=== PATIENT | female | born 2000 | race Caucasian/White ===

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

== ENCOUNTER → 2019-08-12 | Outpatient (CLI) | payer OTHER ==
[~2019-08-12] MED LIST changes: +ALBU4CRA; +CITA20 PO; +DOCU100 PO; +IBUP800 PO; +Verotin-Gr Cap1 EACH PO
[2019-08-12 17:49] LABS: BASOPHILS ABSOLUTE AUTO 0.03 K/mm3 (0.00-0.23); BASOPHILS PERCENT AUTO 1 % (0-2); EOSINOPHILS ABSOLUTE AUTO 0.15 K/mm3 (0.00-0.68); EOSINOPHILS PERCENT AUTO 2 % (0-6); Hematocrit 41.1 % (33.0-51.0); Hemoglobin 14.2 g/dL (11.5-16.0); IMMATURE GRAN ABSOLUTE AUTO 0.02 K/mm3 (0.00-0.10); IMMATURE GRAN PERCENT AUTO 0 % (0-1); LYMPHOCYTES ABSOLUTE AUTO 1.91 K/mm3 (0.84-5.20); LYMPHOCYTES PERCENT AUTO 31 % (21-46); MONOCYTES ABSOLUTE AUTO 0.52 K/mm3 (0.16-1.47); MONOCYTES PERCENT AUTO 8 % (4-13); Mean Corpuscular HGB 32.1 pg (26.0-34.0); Mean Corpuscular HGB Conc 34.5 g/dL (31.5-36.5); Mean Corpuscular Volume 93 fL (80-100); Mean Platelet Volume 10.1 fL (9.1-12.4); NEUTROPHILS ABSOLUTE AUTO 3.53 K/mm3 (1.96-9.15); NEUTROPHILS PERCENT AUTO 57 % (41-73); Platelet Count 298 K/mm3 (150-400); RDW Coefficient Variation 11.7 % (11.7-14.2); RDW Standard Deviation 39.9 fL (35.1-46.3); Red Blood Cell Count 4.43 M/mm3 (3.80-5.20); White Blood Cell Count 6.16 K/mm3 (4.00-11.30)
== END | disposition home or self-care (01) ==
LOC: LAB EV 17:44 → LAB SHORT 17:44
PROVIDERS: Family Medicine
DX: R42 Dizziness and giddiness (principal)
CPT/HCPCS: 85025

== ENCOUNTER 2019-12-05 03:12 | Emergency (ER) | payer OTHER ==
[~2019-12-05] VITALS: Ht 162.6 cm; Wt 63.5 kg
== END 2019-12-05 03:51 | disposition home or self-care (01) ==
LOC: ER 03:12
DX: T19.2XXA Foreign body in vulva and vagina, initial encounter (principal); Z87.891 Personal history of nicotine dependence
CPT/HCPCS: 99283

== ENCOUNTER → 2020-03-21 | Outpatient (CLI) | payer OTHER ==
[2020-03-21 18:30] LABS: BASOPHILS ABSOLUTE AUTO 0.04 K/mm3 (0.00-0.23); BASOPHILS PERCENT AUTO 1 % (0-2); EOSINOPHILS ABSOLUTE AUTO 0.28 K/mm3 (0.00-0.68); EOSINOPHILS PERCENT AUTO 3 % (0-6); Hematocrit 41.6 % (33.0-51.0); Hemoglobin 14.4 g/dL (11.5-16.0); IMMATURE GRAN ABSOLUTE AUTO 0.02 K/mm3 (0.00-0.10); IMMATURE GRAN PERCENT AUTO 0 % (0-1); LYMPHOCYTES ABSOLUTE AUTO 2.17 K/mm3 (0.84-5.20); LYMPHOCYTES PERCENT AUTO 27 % (21-46); MONOCYTES ABSOLUTE AUTO 0.47 K/mm3 (0.16-1.47); MONOCYTES PERCENT AUTO 6 % (4-13); Mean Corpuscular HGB 31.5 pg (26.0-34.0); Mean Corpuscular HGB Conc 34.6 g/dL (31.5-36.5); Mean Corpuscular Volume 91 fL (80-100); Mean Platelet Volume 9.8 fL (9.1-12.4); NEUTROPHILS ABSOLUTE AUTO 5.22 K/mm3 (1.96-9.15); NEUTROPHILS PERCENT AUTO 64 % (41-73); Platelet Count 285 K/mm3 (150-400); RDW Coefficient Variation 11.4 % (11.7-14.2); Red Blood Cell Count 4.57 M/mm3 (3.80-5.20)
== END | disposition home or self-care (01) ==
LOC: LAB SHORT 18:26 → LAB EV 18:26
PROVIDERS: Physician Assistant
DX: D64.9 Anemia, unspecified (principal)
CPT/HCPCS: 85025

== ENCOUNTER 2020-06-17 20:55 | Emergency (ER) | payer OTHER ==
[~2020-06-17] VITALS: Ht 162.6 cm; Wt 68.0 kg
[2020-06-17] MEDS ORDERED: TRAZ50 PO (21:03)
== END 2020-06-17 21:54 | disposition home or self-care (01) ==
LOC: ER 20:55
DX: S20.359A Superficial foreign body of unspecified front wall of thorax, initial encounter (principal); F17.290 Nicotine dependence, other tobacco product, uncomplicated; Z79.899 Other long term (current) drug therapy; W45.8XXA Other foreign body or object entering through skin, initial encounter
CPT/HCPCS: 10120; 99282-25

== ENCOUNTER → 2022-02-28 | Outpatient (CLI) | payer OTHER ==
[~2022-02-28] MED LIST changes: +TRAZ50 PO
== END | disposition home or self-care (01) ==
LOC: LAB SHORT 10:02 → LAB 10:02
PROVIDERS: Advanced Practice Midwife
DX: Z01.419 Encounter for gynecological examination (general) (routine) without abnormal findings (principal)
CPT/HCPCS: G0123

== ENCOUNTER 2023-01-05 23:49 | Inpatient (IN) | payer OTHER ==
[~2023-01-05] VITALS: Ht 162.6 cm; Wt 88.2 kg
[2023-01-05 23:59] VITALS: BP 125/80
[2023-01-06] VITALS (22 sets, daily range): BP systolic 104–140; BP diastolic 57–123
[2023-01-06 02:08] LABS: BASOPHILS ABSOLUTE AUTO 0.04 K/mm3 (0.00-0.23); BASOPHILS PERCENT AUTO 0 % (0-2); EOSINOPHILS ABSOLUTE AUTO 0.19 K/mm3 (0.00-0.68); EOSINOPHILS PERCENT AUTO 1 % (0-6); Hematocrit 36.2 % (33.0-51.0); Hemoglobin 12.1 g/dL (11.5-16.0); IMMATURE GRAN PERCENT AUTO 2 % (0-1); LYMPHOCYTES ABSOLUTE AUTO 1.82 K/mm3 (0.84-5.20); LYMPHOCYTES PERCENT AUTO 13 % (21-46); MONOCYTES PERCENT AUTO 8 % (4-13); Mean Corpuscular HGB 30.3 pg (26.0-34.0); Mean Corpuscular HGB Conc 33.4 g/dL (31.5-36.5); Mean Corpuscular Volume 91 fL (80-100); Mean Platelet Volume 10.7 fL (9.1-12.4); NEUTROPHILS ABSOLUTE AUTO 10.33 K/mm3 (1.96-9.15); NEUTROPHILS PERCENT AUTO 76 % (41-73); Platelet Count 247 K/mm3 (150-400); RDW Coefficient Variation 11.9 % (11.7-14.2); RDW Standard Deviation 39.4 fL (35.1-46.3); Red Blood Cell Count 3.99 M/mm3 (3.80-5.20); White Blood Cell Count 13.68 K/mm3 (4.00-11.30)
[2023-01-06 02:26] LABS: Albumin, Blood 2.6 g/dL (3.4-5.0); Albumin/Globulin Ratio 0.7 (0.8-1.8); Bilirubin, Total 0.2 mg/dL (0.1-1.0); Bun/Creatinine Ratio 10.5 (12.0-20.0); Calcium, Blood 8.7 mg/dL (8.5-10.1); Creatinine, Blood 0.57 mg/dL (0.40-1.00); Globulin, Blood 3.9 g/dL (2.2-4.0); Potassium, Blood 3.4 mmol/L (3.5-5.5); Total Protein, Blood 6.5 g/dL (6.4-8.2)
[2023-01-06 06:29] LABS: PCO2 Cord - Arterial 43.5 mmHg (40-50); PO2 Cord - Arterial 20.3 mmHg (16-20)
[2023-01-06 06:31] LABS: PCO2 Cord - Venous 36.6 mmHg (40-50); PO2 Cord - Venous 24.5 mmHg (28-32); pH Umbilical Cord - Venous 7.32 (7.26-7.35)
--- NOTE | 2023-01-06 08:48 | NUR ---
MEDIPORE DRESSING AND STERI STRIPS REPLACED DUE TO SOME OOZING ON PATIENTS RIGHT SIDE SURGICAL SITE FROM C SECTION.
[2023-01-07 01:03] VITALS: BP 135/83
[2023-01-07 04:08] LABS: BASOPHILS ABSOLUTE AUTO 0.03 K/mm3 (0.00-0.23); BASOPHILS PERCENT AUTO 0 % (0-2); EOSINOPHILS ABSOLUTE AUTO 0.18 K/mm3 (0.00-0.68); EOSINOPHILS PERCENT AUTO 2 % (0-6); Hematocrit 32.3 % (33.0-51.0); Hemoglobin 10.8 g/dL (11.5-16.0); IMMATURE GRAN ABSOLUTE AUTO 0.07 K/mm3 (0.00-0.10); IMMATURE GRAN PERCENT AUTO 1 % (0-1); LYMPHOCYTES ABSOLUTE AUTO 1.27 K/mm3 (0.84-5.20); LYMPHOCYTES PERCENT AUTO 14 % (21-46); MONOCYTES ABSOLUTE AUTO 0.67 K/mm3 (0.16-1.47); MONOCYTES PERCENT AUTO 7 % (4-13); Mean Corpuscular HGB 30.9 pg (26.0-34.0); Mean Corpuscular HGB Conc 33.4 g/dL (31.5-36.5); Mean Corpuscular Volume 93 fL (80-100); Mean Platelet Volume 10.1 fL (9.1-12.4); NEUTROPHILS PERCENT AUTO 75 % (41-73); Platelet Count 177 K/mm3 (150-400); RDW Standard Deviation 40.3 fL (35.1-46.3); Red Blood Cell Count 3.49 M/mm3 (3.80-5.20); White Blood Cell Count 9.02 K/mm3 (4.00-11.30)
[2023-01-07 04:42] VITALS: BP 113/76
[2023-01-07 07:56] VITALS: BP 120/71
[2023-01-07] MEDS ORDERED: Percocet 5-3251 EACH PO (09:21)
[2023-01-07] MEDS ORDERED: IBU800 MG PO (09:22)
[2023-01-07 09:46] VITALS: BP 98/62
[2023-01-07 12:05] VITALS: BP 116/69
--- NOTE | 2023-01-07 12:42 | NUR ---
PT GIVEN WRITTEN AND VERBAL D/C INSTRUCTIONS, STATES UNDERSTANDING AND IS ANXIOUS TO GO SO SHE CAN GO BE WITH HER BABY UP [place]. D/C'D WITH S.O.
--- NOTE | 2023-01-09 09:07 | NUR ---
PPFU: PPFU DONT OVER PHONE, PT AT [facility] WITH NB. PT STATES SHE HAS BEEN PUMPING EVERY 3 HOURS AND HER MILK IS COMING IN. PT STATES SHE HAS NOT HAD A BM SINCE DELIVERY BUT IS PASSING GAS AND TAKING A STOOL SOFTNER. PT IS UP WALKING AROUND [facility]. VAGINAL BLEEDING IS SAME WHEN SHE LEFT AND IS RED/BROWN IN COLOR. TALKED WITH PT ABOUT RESTING ANY CHANCE SHE CAN. PT DENIES HEADACHE, BLURRED VISION, DIZZINESS. PT DENIES NUMBNESS AND TINGLING IN HAND AND FEET. PT STATES HER FEET AND ANKLES ARE SWOLLEN, INSTRUCTED PT TO REST, ELEVATE FEET, AND INCREASE WATER INTAKE. PT DENIES HARD, RED, SWOLLEN OR PAINFUL SPOTS IN THE BACK OF HER KNEES AND CALVES. PT HAS MD F/U APPOINTMENT SCHEDULED. PT STATES HER INCISION LOOKS GOOD, NO SIGNS OF INFECTION, IS WEARING BINDER AND INSTRUCTED. PT STATES SHE IS TAKING A STOOL SOFTNER, IBUPROFEN, AND PERCOCET AT HOME.
== END 2023-01-07 12:25 | disposition home or self-care (01) | DRG 788 ==
LOC: OBS 23:49 → BC 23:50 → OBS 01-06 01:45 → BC 01-06 01:46
PROVIDERS: Family Medicine; ADMIT Obstetrics & Gynecology
PROC: 4A033R1 Measurement of Arterial Saturation, Peripheral, Percutaneous Approach (ICD-10-PCS; 2023-01-06)
PROC: 10D00Z1 Extraction of Products of Conception, Low, Open Approach (ICD-10-PCS; principal; 2023-01-06 04:45)
DX: O76 Abnormality in fetal heart rate and rhythm complicating labor and delivery (principal); Z37.0 Single live birth; Z3A.32 32 weeks gestation of pregnancy; O99.344 Other mental disorders complicating childbirth; F41.9 Anxiety disorder, unspecified; Z67.10 Type A blood, Rh positive; Z79.899 Other long term (current) drug therapy
CPT/HCPCS: 36415; 59025; 76819; 80053; 81003; 82803; 85025; 86850; 86900; 86901; A9270; J0690; J1885; J2405; J2590; J2765; J3010; J7120

== ENCOUNTER → 2023-09-23 | Outpatient (CLI) | payer OTHER ==
[~2023-09-23] MED LIST changes: +IBU800 MG PO; +Percocet 5-3251 EACH PO
[2023-09-23 15:17] LABS: Candida species (DNA Probe) Negative (NEGATIVE); G. vaginalis (DNA Probe) Negative (NEGATIVE); T. vaginalis (DNA Probe) Negative (NEGATIVE)
[2023-09-26 00:48] LABS: APTIMA MEDIA TYPE Unisex Swab; C. TRACHOMATIS BY TMA Negative (Negative); N. GONORRHOEAE BY TMA Negative (Negative); SPECIMEN SOURCE Not Provided
== END | disposition home or self-care (01) ==
LOC: LAB 09:00 → LAB SHORT 09:00
PROVIDERS: Physician Assistant Medical
DX: N89.8 Other specified noninflammatory disorders of vagina (principal)
CPT/HCPCS: 87480; 87491; 87510; 87591; 87660

== ENCOUNTER → 2024-09-04 | Outpatient (CLI) | payer OTHER ==
[2024-09-04 15:31] LABS: Bacterial Vaginosis PCR Negative (NEGATIVE); Candida glabrata-krusei, PCR NOT DETECTED (NOT DETECT)
[2024-09-04 15:36] LABS: Candida Group, PCR DETECTED (NOT DETECT)
== END ==
LOC: LAB 12:55 → LAB SHORT 12:55
PROVIDERS: Advanced Practice Midwife
DX: N76.0 Acute vaginitis (principal)
CPT/HCPCS: 87481; 87661; 87801

== ENCOUNTER 2025-01-08 20:32 | Emergency (ER) | payer OTHER ==
[~2025-01-08] VITALS: Ht 162.6 cm; Wt 54.0 kg
[2025-01-08 20:58] VITALS: BP 140/98
[2025-01-08] MEDS ORDERED: DULOXETINE HCL60 M1 PO (21:03)
[2025-01-08] MEDS ORDERED: Adderall Xr 2020 MG PO (21:03)
[2025-01-08] MEDS ORDERED: Amphetamine Sal15 MG PO (21:04)
== END 2025-01-08 22:00 | disposition home or self-care (01) ==
LOC: ER 20:32
DX: R45.851 Suicidal ideations (principal); J45.909 Unspecified asthma, uncomplicated; F41.9 Anxiety disorder, unspecified; F32.A Depression, unspecified; F17.290 Nicotine dependence, other tobacco product, uncomplicated; Z79.899 Other long term (current) drug therapy
CPT/HCPCS: 99284